=== PATIENT | male | born 1970 | race Caucasian/White ===

== ENCOUNTER 2024-11-17 09:02 | Inpatient (IN) ==
[2024-11-17] MEDS: SODIUM CHLORIDE 0.9% 1,000 ML IV ONE (09:19)
[2024-11-17] MEDS: ONDANSETRON INJ 2 MG/ML 2 ML VIAL IV STA (09:20)
[2024-11-17] MEDS: ACETAMINOPHEN 1,000 MG/100 ML VIAL IV STA (09:20)
[2024-11-17 09:37] LABS: Basophils # (auto) 0.03 K/uL (0.00-0.20); Basophils % (auto) 0.2 %; Eosinophils # (auto) 0.06 K/uL (0.00-0.50); Eosinophils % (auto) 0.4 %; Hematocrit (blood only) 45.9 % (42.0-52.0); Hemoglobin 15.9 g/dl (14.0-18.0); Immature Granulocytes # (auto) 0.08 K/uL (0.01-0.20); Immature Granulocytes % (auto) 0.6 %; Lymphocytes # (auto) 1.55 K/uL (1.20-3.40); Mean Corpuscular Hemoglobin 30.1 pg (25.0-34.0); Mean Corpuscular Hgb Conc 34.6 g/dL (32.0-36.0); Mean Corpuscular Volume 86.9 fL (80.0-100.0); Mean Platelet Volume 9.1 fL (9.4-12.4); Monocytes # (auto) 0.83 K/uL (0.11-0.59); Monocytes % (auto) 5.9 %; Neutrophils # (auto) 11.53 K/uL (1.40-6.50); Neutrophils % (auto) 81.9 %; Platelet Count 294 K/uL (130-400); RDW Coefficient of Variation 13.3 % (11.5-14.5); RDW Standard Deviation 41.7 fL (36.4-46.3); Red Blood Count 5.28 M/uL (4.70-6.10); White Blood Count 14.08 K/ul (4.8-10.8)
--- NOTE | 2024-11-17 09:39 | Emergency Department Note ---
Impression & Plan Acute left flank pain, Calculus of left ureter, Acute UTI (urinary tract infection) ED Provider Note HISTORY OF PRESENT ILLNESS: Patient is a 54-year-old male presenting with left flank pain. Patient reports that his left kidney is "full of stones." He is worried that one of them has moved into his ureter. He states that last night around 1999 he started having pain in his left flank that wraps around to his anterior abdomen and radiated into his left groin. He reports this feels similar to his previous kidney stones. He reports that when he has had kidney stones, he has required surgical intervention. He reports his last urological surgery was about 3 years ago. He reports nausea, vomiting and multiple episodes of diarrhea throughout the night. He reports the pain is a 10 out of 10. He describes it as a burning sensation. He denies any dysuria but does report some hematuria. He denies any fevers. ROS: as above PHYSICAL EXAM: Constitutional: Patient appears in no acute distress. HENT: Head: Normocephalic and atraumatic. Eyes: EOMI, PERRL Mouth/Throat: Mucous membranes moist. Neck: Trachea midline. Neck supple. Cardiovascular: RRR, No murmurs, rubs or gallops. Intact distal pulses. Pulmonary/Chest: No respiratory distress. Breath sounds clear and equal bilaterally. No wheezes or rales. Abdominal: Abdomen soft, no tenderness, rebound or guarding. Back: No midline spinal tenderness, no paraspinal tenderness. Left CVA tenderness Musculoskeletal: No edema, tenderness or deformity noted. Skin: Warm and dry. No rash, erythema, pallor or cyanosis Psychiatric: Appropriate mood and affect for situation. Neurological: Alert and keenly responsive. CN II-XII grossly intact, moving all extremities equally and fully. MDM: - Vitals signs stable - History obtained via patient. History as above. - Chronic conditions affecting care: Nephrolithiasis - Differential diagnoses include, but are not limited to: Ureteral stone; pyelonephritis; UTI; colitis; diverticulitis - Order placed for continuous cardiac monitoring. At this time, monitor showed rate of 80 bpm with normal sinus rhythm, per my interpretation. - External medical records reviewed. - Laboratory workup interpreted by myself showed leukocytosis (WBC 14.08) with neutrophil predominance; stable electrolytes; normal creatinine; normal lipase - CT abdomen/pelvis with IV contrast showed 12 mm calculus at left UPJ causing left hydronephrosis - UA negative for bacteria, but noted to have leukocyte esterase in the urine as it was a number of WBCs. - Patient given 1L NS, 1g IV tylenol and 4 mg IV zofran on arrival. Given 15 mg IV toradol for further pain control - 2g IV rocephin ordered for urine coverage - Discussed case with THEO Gray on for urology at 11:10 AM. She recommended that if urine looks okay, patient could be discharged with outpatient follow-up and good pain control and plan for surgery in the outpatient setting. Did discuss patient's urinalysis when it resulted and she recommended admission to medicine for pain control and she will be down to see the patient. Reports urology plans for a stent placed either later today or tomorrow. - Discussion was had with child support case officer about patient's case and need for admission - Hospitalist consulted for admission - [facility] ASSESSMENT AND PLAN: Diagnosis: Acute left flank pain; left ureteral stone; acute UTI Plan: Admit Past Med/Surg History Problem List (Updated 11/17/24 @ 12:56 by Kelli Dodge MD) Acute UTI (urinary tract infection) (Acute) Calculus of left ureter (Acute) Acute left flank pain (Acute) Social History Smoking Status: Never smoker Preferred Language: Syriac Feels Safe at Home: Yes Allergies Allergies Allergy/AdvReac Type Severity Reaction Status Date / Time No Known Allergies Allergy Unverified 11/17/24 12:54 Home Meds Home Medications Medication Instructions Recorded Confirmed amlodipine 5 mg tablet 5 mg PO DAILY 11/17/24 11/17/24 buspirone 10 mg tablet 20 mg PO HS 11/17/24 11/17/24 duloxetine 30 mg capsule,delayed 30 mg PO HS 11/17/24 11/17/24 release duloxetine 60 mg capsule,delayed 60 mg PO HS 11/17/24 11/17/24 release oxcarbazepine 150 mg tablet 150 mg PO HS 11/17/24 11/17/24 (Trileptal) oxcarbazepine 300 mg tablet 600 mg PO HS 11/17/24 11/17/24 (Trileptal) tramadol 50 mg tablet 100 mg PO DAILY 11/17/24 11/17/24 Results & Data (ED) Vital Signs Vital Signs - 24 hr 11/17/24 09:03 11/17/24 09:04 11/17/24 09:10 Temperature 36.8 C Temperature Source Temporal Artery Scan Pulse Rate 83 Pulse Rate [Apical] 69 Pulse Rate from SpO2 Sensor Respiratory Rate 18 17 Respiratory Effort / Characteristics Non-Labored Spontaneous Respiratory Depth Normal Blood Pressure 114/78 Blood Pressure [Left Radial Artery] 114/75 Blood Pressure Mean 90 Blood Pressure Mean [Left Radial Artery] 88 Pulse Oximetry 99 100 99 Oxygen Delivery Method Room Air Room Air Sepsis Recent Fever Within 48 Hours No Sepsis New/Unexplained Change in Mental Status N/A Sepsis Action Taken by Nursing No Action Required 11/17/24 09:19 11/17/24 09:24 11/17/24 09:30 Temperature Temperature Source Pulse Rate 76 Pulse Rate [Apical] Pulse Rate from SpO2 Sensor 80 Respiratory Rate 22 Respiratory Effort / Characteristics Respiratory Depth Blood Pressure 114/76 115/75 Blood Pressure [Left Radial Artery] Blood Pressure Mean 97 86 Blood Pressure Mean [Left Radial Artery] Pulse Oximetry 91 Oxygen Delivery Method Sepsis Recent Fever Within 48 Hours Sepsis New/Unexplained Change in Mental Status Sepsis Action Taken by Nursing 11/17/24 09:30 11/17/24 09:30 11/17/24 09:30 Temperature Temperature Source Pulse Rate 70 Pulse Rate [Apical] Pulse Rate from SpO2 Sensor 71 Respiratory Rate 29 H Respiratory Effort / Characteristics Respiratory Depth Blood Pressure 115/75 115/75 Blood Pressure [Left Radial Artery] Blood Pressure Mean 86 86 Blood Pressure Mean [Left Radial Artery] Pulse Oximetry 99 Oxygen Delivery Method Sepsis Recent Fever Within 48 Hours Sepsis New/Unexplained Change in Mental Status Sepsis Action Taken by Nursing 11/17/24 09:45 11/17/24 09:51 11/17/24 10:15 Temperature Temperature Source Pulse Rate 64 67 74 Pulse Rate [Apical] Pulse Rate from SpO2 Sensor 66 68 74 Respiratory Rate 28 H 26 H 20 Respiratory Effort / Characteristics Respiratory Depth Blood Pressure Blood Pressure [Left Radial Artery] Blood Pressure Mean Blood Pressure Mean [Left Radial Artery] Pulse Oximetry 100 98 93 Oxygen Delivery Method Sepsis Recent Fever Within 48 Hours Sepsis New/Unexplained Change in Mental Status Sepsis Action Taken by Nursing 11/17/24 10:17 11/17/24 10:51 11/17/24 11:00 Temperature Temperature Source Pulse Rate 75 92 H Pulse Rate [Apical] Pulse Rate from SpO2 Sensor 91 H Respiratory Rate 23 Respiratory Effort / Characteristics Respiratory Depth Blood Pressure 121/77 Blood Pressure [Left Radial Artery] Blood Pressure Mean 85 Blood Pressure Mean [Left Radial Artery] Pulse Oximetry 94 Oxygen Delivery Method Sepsis Recent Fever Within 48 Hours Sepsis New/Unexplained Change in Mental Status Sepsis Action Taken by Nursing 11/17/24 11:03 11/17/24 11:12 11/17/24 11:21 Temperature Temperature Source Pulse Rate 81 81 Pulse Rate [Apical] 88 Pulse Rate from SpO2 Sensor 81 Respiratory Rate 18 19 24 Respiratory Effort / Characteristics Respiratory Depth Blood Pressure Blood Pressure [Left Radial Artery] 121/77 Blood Pressure Mean Blood Pressure Mean [Left Radial Artery] 91 Pulse Oximetry 96 94 Oxygen Delivery Method Sepsis Recent Fever Within 48 Hours Sepsis New/Unexplained Change in Mental Status Sepsis Action Taken by Nursing 11/17/24 11:30 11/17/24 11:30 Temperature Temperature Source Pulse Rate 80 Pulse Rate [Apical] Pulse Rate from SpO2 Sensor 80 Respiratory Rate 20 Respiratory Effort / Characteristics Respiratory Depth Blood Pressure 117/78 Blood Pressure [Left Radial Artery] Blood Pressure Mean 91 Blood Pressure Mean [Left Radial Artery] Pulse Oximetry 94 Oxygen Delivery Method Sepsis Recent Fever Within 48 Hours Sepsis New/Unexplained Change in Mental Status Sepsis Action Taken by Nursing Laboratory Data 11/17/24 09:28 11/17/24 09:28 Lab Results 11/17/24 11/17/24 Range/Units 09:28 11:25 WBC 14.08 H (4.8-10.8) K/ul RBC 5.28 (4.70-6.10) M/uL Hgb 15.9 (14.0-18.0) g/dl Hct 45.9 (42.0-52.0) % MCV 86.9 (80.0-100.0) fL MCH 30.1 (25.0-34.0) pg MCHC 34.6 (32.0-36.0) g/dL RDW Std Deviation 41.7 (36.4-46.3) fL RDW Coeff of Nika 13.3 (11.5-14.5) % Plt Count 294 (130-400) K/uL MPV 9.1 L (9.4-12.4) fL Immature Gran % (Auto) 0.6 % Neut % (Auto) 81.9 % Lymph % (Auto) 11.0 % Spencer % (Auto) 5.9 % Eos % (Auto) 0.4 % Baso % (Auto) 0.2 % Neut # (Auto) 11.53 H (1.40-6.50) K/uL Lymph # (Auto) 1.55 (1.20-3.40) K/uL Spencer # (Auto) 0.83 H (0.11-0.59) K/uL Eos # (Auto) 0.06 (0.00-0.50) K/uL Baso # (Auto) 0.03 (0.00-0.20) K/uL Immature Gran # (Auto) 0.08 (0.01-0.20) K/uL Sodium 138 (136-145) mmol/L Potassium 3.5 (3.5-5.1) mmol/L Chloride 106 (98-107) mmol/L Carbon Dioxide 23 (21-32) mmol/L Anion Gap 9 (3-11) BUN 29 H (6-23) mg/dl Creatinine 1.22 (0.6-1.4) mg/dl Est Cr Clr Drug Dosing Not Reportable eGFR 71.33 BUN/Creatinine Ratio 23.8 H (10-20) Glucose 100 H (70-99(Fasting)) mg/dl Calcium 9.1 (8.6-10.3) mg/dl Total Bilirubin 1.1 H (0.2-1.0) mg/dl AST 24 (13-39) U/L ALT 22 (7-52) U/L Alkaline Phosphatase 106 H (34-104) U/L Total Protein 7.7 (6.0-8.3) gm/dl Albumin 4.5 (3.4-5.0) gm/dl Globulin 3.2 (2.5-4.0) gm/dl Albumin/Globulin Ratio 1.4 (0.9-2) Lipase 15 (11-82) U/L Urine Color Yellow Urine Appearance Clear (Clear) Urine pH 5.5 (4.5-7.5) Ur Specific [place] > 1.045 H (1.000-1.030) Urine Protein 1+ H (Negative) Urine Glucose (UA) Negative (Negative) Urine Ketones Trace H (Negative) Urine Blood 2+ H (Negative) Urine Nitrite Negative (Negative) Urine Bilirubin Negative (Negative) Urine Urobilinogen Negative (Negative) Ur Leukocyte Esterase 2+ H (Negative) Urine WBC (Auto) >50 H (0-5) /hpf Urine RBC (Auto) 11-20 H (0-2) /hpf U Hyaline Cast (Auto) 0-2 (0-2) /lpf U Epithel Cells (Auto) 0-2 (0-2) /hpf Urine Bacteria (Auto) None Seen (None Seen) Administered Medications Discontinued Medications Sodium Chloride (Nss) 1,000 mls @ 999 mls/hr IV .Q1H1M ONE Stop: 11/17/24 10:10 Last Infusion: 11/17/24 10:29 Dose: Infused Documented By: Admin: 11/17/24 09:19 Dose: 999 mls/hr Documented By: YANNA Acetaminophen (Ofirmev) 1,000 mg in 100 mls @ 400 mls/hr IV NOW STA Stop: 11/17/24 09:24 Last Infusion: 11/17/24 09:57 Dose: Infused Documented By: Admin: 11/17/24 09:20 Dose: 400 mls/hr Documented By: YANNA Ceftriaxone Sodium (Rocephin) 2,000 mg in 50 mls @ 100 mls/hr IV NOW STA Stop: 11/17/24 12:28 Last Admin: 11/17/24 12:39 Dose: 100 mls/hr Documented By: YANNA Ioversol (Optiray 320 100ml) 92 ml IV ONCE ONE Stop: 11/17/24 10:46 Last Admin: 11/17/24 10:45 Dose: 92 ml Documented By: TRAVIS Ketorolac Tromethamine (Ketorolac Tromethamine 15 Mg/Ml Vial) 15 mg IV NOW STA Stop: 11/17/24 10:55 Last Admin: 11/17/24 11:18 Dose: 15 mg Documented By: YANNA Ondansetron HCl (Ondansetron Inj 2 Mg/Ml 2 Ml Vial) 4 mg IV NOW STA Stop: 11/17/24 09:11 Last Admin: 11/17/24 09:20 Dose: 4 mg Documented By: YANNA Imaging Data Radiologist's Impression: Abdomen/Pelvis CT 11/17/24 09:[address] WITH IV CONTRAST CT DOSE: 1082.37 mGy.cm HISTORY: left flank pain TECHNIQUE: Multiaxial CT images of the abdomen and pelvis were performed following the IV administration of 90 cc of Optiray, A dose lowering technique was utilized adhering to the principles of ALARA. COMPARISON STUDY: None FINDINGS: ABDOMEN: Gallbladder is surgically absent. Liver, spleen, pancreas, and adrenal glands are unremarkable. There are a few small cysts in both kidneys. There is no hydronephrosis or renal calculi on the right. There is mild hydronephrosis of the left kidney. There is a 1.2 cm calculus at the left UPJ. No other renal or ureteral calculi seen. No abdominal aortic aneurysm. There are mild atherosclerotic calcifications. Pelvis: Prostate is enlarged. Urinary bladder is mildly distended. There is mild sigmoid diverticulosis. No acute diverticulitis. Normal appendix. No bowel inflammation or obstruction. No free fluid, free air, or abscess. No enlarged adenopathy. Osseous structures: There is mild lumbar degenerative disc disease. There is an area of lucency with peripheral sclerosis superior aspect of the right femoral head consistent with AVN. IMPRESSION: 1. 12 mm calculus at the left UPJ causes mild left hydronephrosis. 2. Otherwise as described. ACT 112: Negative or not required by law. The above report was generated using voice recognition software. It may contain grammatical, syntax or spelling errors. Electronically signed by: Edgardo Morris M.D. 11/17/2024 11:00 AM Discharge Plan Visit Data Chief Complaint: Kidney Stone Stated Complaint: KIDNEY STONES ED Provider: Kelli Dodge Discharge Problem: Acute left flank pain, Calculus of left ureter, Acute UTI (urinary tract infection) Forms Stand Alone Forms: [facility] [employer] Prescriptions Prescriptions: No Action oxcarbazepine [Trileptal] 150 mg Tablet 150 mg PO HS Rx Instructions: Take w/ 600mg to equal 750mg oxcarbazepine [Trileptal] 300 mg Tablet 600 mg PO HS Rx Instructions: Take w/ 1500mg to equal 750mg amlodipine 5 mg Tablet 5 mg PO DAILY tramadol 50 mg Tablet 100 mg PO DAILY buspirone 10 mg Tablet 20 mg PO HS duloxetine 30 mg Capsule,Delayed Release(Dr/Ec) 30 mg PO HS Rx Instructions: Take w/ 60mg to equal 90 mg duloxetine 60 mg Capsule,Delayed Release(Dr/Ec) 60 mg PO HS Rx Instructions: Take w/ 30mg to equal 90 mg Referrals Referrals: Luigi STEIN [Primary Care Provider] -
[2024-11-17 10:21] LABS: Glucose 100 mg/dl (70-99(Fasting))
[2024-11-17 10:22] LABS: Alanine Aminotransferase 22 U/L (7-52); Albumin Globulin Ratio 1.4 (0.9-2); Albumin Level 4.5 gm/dl (3.4-5.0); Alkaline Phosphatase 106 U/L (34-104); Anion Gap 9 (3-11); Aspartate Aminotransferase 24 U/L (13-39); BUN Creatinine Ratio 23.8 (10-20); Bilirubin,Total 1.1 mg/dl (0.2-1.0); Blood Urea Nitrogen 29 mg/dl (6-23); Calcium 9.1 mg/dl (8.6-10.3); Carbon Dioxide 23 mmol/L (21-32); Chloride 106 mmol/L (98-107); Globulin 3.2 gm/dl (2.5-4.0); Lipase 15 U/L (11-82); Potassium 3.5 mmol/L (3.5-5.1); Sodium 138 mmol/L (136-145); Total Protein 7.7 gm/dl (6.0-8.3)
[2024-11-17] MEDS: OPTIRAY 320 100ml IV ONE (10:45)
--- NOTE | 2024-11-17 11:01 | CT Scan Report ---
ABDOMEN AND PELVIS CT WITH IV CONTRAST CT DOSE: 1082.37 mGy.cm HISTORY: left flank pain TECHNIQUE: Multiaxial CT images of the abdomen and pelvis were performed following the IV administrat ion of 90 cc of Optiray, A dose lowering technique was utilized adhering to the principles of ALARA. COMPARISON STUDY: None FINDINGS: ABDOMEN: Gallbladder is surgically absent. Liver, spleen, pancreas, and adrenal glands are unremarkab le. There are a few small cysts in both kidneys. There is no hydronephrosis or renal calculi on the r ight. There is mild hydronephrosis of the left kidney. There is a 1.2 cm calculus at the left UPJ. No other renal or ureteral calculi seen. No abdominal aortic aneurysm. There are mild atherosclerotic c alcifications. Pelvis: Prostate is enlarged. Urinary bladder is mildly distended. There is mild sigmoid diverticulos is. No acute diverticulitis. Normal appendix. No bowel inflammation or obstruction. No free fluid, fr ee air, or abscess. No enlarged adenopathy. Osseous structures: There is mild lumbar degenerative disc disease. There is an area of lucency with peripheral sclerosis superior aspect of the right femoral head consistent with AVN. IMPRESSION: 1. 12 mm calculus at the left UPJ causes mild left hydronephrosis. 2. Otherwise as described. ACT 112: Negative or not required by law. The above report was generated using voice recognition software. It may contain grammatical, syntax o r spelling errors. Electronically signed by: Edgardo Morris M.D. 11/17/2024 11:00 AM
[2024-11-17] MEDS: KETOROLAC TROMETHAMINE 15 MG/ML VIAL IV STA (11:18)
[2024-11-17 11:40] LABS: Appearance Urine Clear (Clear); Bacteria Urine Automated None Seen (None Seen); Bilirubin Urine Negative (Negative); Blood Urine 2+ (Negative); Cast Urine Automated 0-2 /lpf (0-2); Color Urine Yellow; Epithelial Cell Urine Auto 0-2 /hpf (0-2); Glucose Urine UA Negative (Negative); Ketones Urine Trace (Negative); Leukocyte Esterase Urine 2+ (Negative); Nitrite Urine Negative (Negative); Protein Urine 1+ (Negative); Specific Gravity Urine > 1.045 (1.000-1.030); Urobilinogen Urine Negative (Negative); WBC Urine Automated >50 /hpf (0-5); pH Urine 5.5 (4.5-7.5)
[2024-11-17] MEDS: cefTRIAXone SODIUM 2,000 MG/50 ML BAG IV STA (12:39)
--- NOTE | 2024-11-17 12:51 | History & Physical Report ---
Date of Service November 17, 2024 Assessment & Plan (1) Acute left flank pain: (2) Calculus of left ureter: (3) Acute UTI (urinary tract infection): (4) Renal insufficiency: (5) Leukocytosis: (6) Diarrhea: (7) Abdominal pain: (8) Depression: (9) Mood disorder: Plan #Acute L flank pain - in patient w/ history of kidney stones and last intervention ~3 yrs ago and obstructing stone at L UPJ w/ mild Cr elevation (unknown baseline) and leukocytosis w/ n/v/d but no fevers reported. #Hematuria, Obstructing Kidney Stone CTAP on admission w/ 12 mm calculus at the left UPJ causes mild left hydronephrosis. WBC 14k, BUN/Cr 29/1.22, TB 1.1, ALP 106 on admission w/ normal lipase (absent GB), w/ UA concerning for possible infection but no bacteria Urology consulted NPO for OR this afternoon/evening IVF w/ NS + 20meq Kcl @ 100cc/hr x 2 L ordered Ceftriaxone IV F/u urine cx Toradol, Tylenol IV as needed for pain. Morphine 1mg for breakthrough if needed (tramadol 50mg x 2 tablets at baseline, will make 50mg BID prn tomorrow but can resume home dose if stable s/p OR and cysto) Zofran IV for antiemetics Will check Vit D w/ repeat stones but no hypercalcemia on labs Consider adding flomax post-op. Monitor labs/exam on repeat #nausea/vomiting/diarrhea reported, likely from obstructing kidney stone but also reports possible diarrhea/spread at the shelter, ?norovirus outbreak --> will check stool studies but given reports will empirically place on isolation precautions in the meantime IVF and antiemetics available as above Monitor for escalation/further eval #HTN - on amlodipine 5mg daily but did not take this morning but BPs stable in setting of pain and w/ diarrhea losses/dehydration will resume for AM 11/18 #Mental health - stable at present and will continue home trileptal 750mg HS, buspar 20mg HS, cymbalta 90mg HS per intake forms/confirmed dosing w/ patient in room DVT proph: chemo proph deferred on admission as for OR and w/ slight hematuria/slight bump in Cr. SCDs ordered in meantime but can consider adding chemoproph pending inpatient course Dispo: admit to medical, NPO for OR this evening with urology. Possible dc next 24-48 hrs pending response to intervention/cx History of Present Illness Chief Complaint: kidney stone, flank pain Primary Care Provider: [facility] 54yo male presents for LEFT flank pain with radiation to anterior abdomen with history of kidney stones (last urological procedure ~ 3 years a go at [facility]). Reports pain 10/10 with some hematuria reported along with nausea/vomiting and diarrhea. Patient evaluated in B11B, 2 guards at bedside. Mild distress and to get medication for pain. Reports needing urological procedure in past for stone treatment and discussed plan for OR this evening with urology as well as abx for possible UTI. Notable did have diarrhea as well, no RUQ pain but discussed w/ guards if anyone else sick and does have reports possible norovirus. Will send for testing, IVF hydration ordered and will place empiric isolation precatuions. Reviewed home meds: cymbalta 90mg HS, trileptal 750mg HS buspar 20mg HS, amlodipine 5mg daily (did not take today). Tramadol 50mg - 2 tablets once daily. No CP/SOB reported. Questions/concerns addressed at this time. Allergies Allergy/AdvReac Type Severity Reaction Status Date / Time wool Allergy Unknown Unknown - Unverified 11/17/24 12:57 On med list from [facility] Home Medications Medication Instructions Recorded Confirmed Type amlodipine 5 mg tablet 5 mg PO DAILY 11/17/24 11/17/24 History buspirone 10 mg tablet 20 mg PO HS 11/17/24 11/17/24 History duloxetine 30 mg capsule,delayed 30 mg PO HS 11/17/24 11/17/24 History release duloxetine 60 mg capsule,delayed 60 mg PO HS 11/17/24 11/17/24 History release oxcarbazepine 150 mg tablet 150 mg PO HS 11/17/24 11/17/24 History (Trileptal) oxcarbazepine 300 mg tablet 600 mg PO HS 11/17/24 11/17/24 History (Trileptal) tramadol 50 mg tablet 100 mg PO DAILY 11/17/24 11/17/24 History ciprofloxacin HCl 500 mg tablet 500 mg PO BID #14 tabs 11/19/24 Rx (Cipro) Past Med/Surg History Problem List (Updated 11/19/24 @ 09:09 by Salty Arrieta MD) Encounter for pre-operative examination Depression Abdominal pain Diarrhea Leukocytosis Acute UTI (urinary tract infection) (Acute) Calculus of left ureter (Acute) Acute left flank pain (Acute) Medical History (Updated 11/19/24 @ 09:09 by Salty Arrieta MD) Hypertension Mood disorder Renal insufficiency Surgical History (Updated 11/17/24 @ 13:58 by Caden Martinez MD) History of hydrocelectomy Hx laparoscopic cholecystectomy Hx of cystoscopy Social History Smoking Status: Never smoker Hx Alcohol Use: No Hx Substance Use: No Preferred Language: Tuvaluan Communication Ability: Effective Radio Performer Required: No Beliefs That Will Affect Care: None Current Living Situation: Personal Care Facility Feels Safe at Home: Yes Assistive Devices: None Review of Systems 2 Review of Systems: All systems reviewed & are unremarkable except as noted in HPI & below Physical Exam 2 Physical Exam: General 54yo male sitting in bed, guards at bedside, mildly uncomfortable appearing, L flank/CVA tenderness w/ radiation to groin but also with lower abd cramping reported HEENT: head atraumatic, normocephalic, mm dry, trachea midline Resp; even/unlabored, on room air CV: RRR, no significant m/r/g GI: +BS, +distension, + L flank/CVA tenderness, no rigidity/guarding : no severino, +CVA tenderness on L, voiding in urinal MSK/Neuro/Psych: not confused, nonfocal , answering questions appropriately, moves all extremities (as allowed w/ handcuffs in bed) Results & Data Results & Data Vital Signs (Past 12 Hours) Vital Signs Temp Pulse Pulse Resp BP BP Pulse Ox 11/17/24 11:30 80 20 94 11/17/24 11:30 117/78 11/17/24 11:21 81 24 11/17/24 11:12 81 19 94 11/17/24 11:03 88 18 121/77 96 11/17/24 11:00 121/77 11/17/24 10:51 92 H 23 94 11/17/24 10:17 75 11/17/24 10:15 74 20 93 11/17/24 09:51 67 26 H 98 11/17/24 09:45 64 28 H 100 11/17/24 09:30 70 29 H 99 11/17/24 09:30 115/75 11/17/24 09:30 115/75 11/17/24 09:30 115/75 11/17/24 09:24 76 22 91 11/17/24 09:19 114/76 11/17/24 09:10 99 11/17/24 09:04 36.8 C 83 17 114/78 100 11/17/24 09:03 69 18 114/75 99 O2 Del Method 11/17/24 11:30 11/17/24 11:30 11/17/24 11:21 11/17/24 11:12 11/17/24 11:03 11/17/24 11:00 11/17/24 10:51 11/17/24 10:17 11/17/24 10:15 11/17/24 09:51 11/17/24 09:45 11/17/24 09:30 11/17/24 09:30 11/17/24 09:30 11/17/24 09:30 11/17/24 09:24 11/17/24 09:19 11/17/24 09:10 11/17/24 09:04 Room Air 11/17/24 09:03 Room Air Laboratory Results 11/17/24 09:28 11/17/24 09:28 UA 1+ protein, trace ketones, 2+ blood, 2+ leuk esterase, >50 WBC, 11-20 RBC, no bacteria. Urine cx pending TB 1.1, AST/ALT wnl, ALP 106 Flu/RSV/COVID pending Diagnostic Findings Abdomen/Pelvis CT 11/17/24 09:[address] WITH IV CONTRAST CT DOSE: 1082.37 mGy.cm HISTORY: left flank pain TECHNIQUE: Multiaxial CT images of the abdomen and pelvis were performed following the IV administration of 90 cc of Optiray, A dose lowering technique was utilized adhering to the principles of ALARA. COMPARISON STUDY: None FINDINGS: ABDOMEN: Gallbladder is surgically absent. Liver, spleen, pancreas, and adrenal glands are unremarkable. There are a few small cysts in both kidneys. There is no hydronephrosis or renal calculi on the right. There is mild hydronephrosis of the left kidney. There is a 1.2 cm calculus at the left UPJ. No other renal or ureteral calculi seen. No abdominal aortic aneurysm. There are mild atherosclerotic calcifications. Pelvis: Prostate is enlarged. Urinary bladder is mildly distended. There is mild sigmoid diverticulosis. No acute diverticulitis. Normal appendix. No bowel inflammation or obstruction. No free fluid, free air, or abscess. No enlarged adenopathy. Osseous structures: There is mild lumbar degenerative disc disease. There is an area of lucency with peripheral sclerosis superior aspect of the right femoral head consistent with AVN. IMPRESSION: 1. 12 mm calculus at the left UPJ causes mild left hydronephrosis. 2. Otherwise as described. ACT 112: Negative or not required by law. The above report was generated using voice recognition software. It may contain grammatical, syntax or spelling errors. Electronically signed by: Edgardo Morris M.D. 11/17/2024 11:00 AM Supervising Physician Co-Signing Physician Notes During face to face encounter, I obtained a history and physical examination, discussed plan of care with patient and answered any questions. I discussed plan of care with ODALIS Castro. I reviewed above note and agree with it except for the following: Patient will be admitted for hematuria and kidney stone will consult urology. will likely need stent placement NPO for procedure PG Care Time/CCT Total # of Minutes Spent Total Time Spent with Patient: Total time spent is greater than 50% in coordination of care (as documented) at patient's floor/unit and/or counseling patient: Coding Level of Care Code 01937 INT INP/OBS CARE 3/75MIN Diagnoses Acute left flank pain R10.9 Calculus of left ureter N20.1 Acute UTI (urinary tract infection) N39.0 Renal insufficiency N28.9 Leukocytosis D72.829 Diarrhea R19.7 Abdominal pain R10.9 Depression F32.A Mood disorder F39
--- NOTE | 2024-11-17 12:58 | Urology Consultation ---
Date of Consultation November 17, 2024 Assessment & Plan (1) Calculus of left ureter: (2) Acute left flank pain: (3) Acute UTI (urinary tract infection): 54-year-old male from [facility] with history of kidney stones who presented to the emergency department today for evaluation of left flank pain and v omiting. CT abd pelvis notable for an obstructing left proximal ureteral stone measuring 12 mm with mild left hydronephrosis. Patient afebrile and hemodynamically stable Labs reviewedcreatinine 1.22, WBC 14.08, hemoglobin 15.9 Urinalysis showed 2+ LE, >50 WBC, 11-20 RBC, negative for bacteria Urine culture pendingfollow urine culture He was started on broad-spectrum antibiotics in ED CTAP notable for an obstructing left proximal ureteral stone measuring 12 mm with mild hydronephrosis, no additional renal or ureteral calculi; bilateral small renal cysts He is being admitted to medicine service due to intractable pain We discussed that his stone is unlikely to pass spontaneously given size Discussed options for stone management including left ureteral stent placement acutely vs outpatient management if pain is controlled He continues to have pain and elects ureteral stent placement He understands that stone treatment will take place at a later date Ureteral stents discussed in detail Proceed to OR for cystoscopy and left ureteral stent placement Risk benefits of procedure to be reviewed with patient by Dr. Farah Continue supportive care and medical management per hospital medicine service will follow Attending note: Patient independently assessed, examined, interviewed, and evaluated. Agree with note as above. Patient's vitals and labs were all reviewed. Pertinent values in the HPI and plan section. Creatinine 1.22, white count 14.08, hemoglobin 15.9. Imaging was reviewed interpreted by myself. Large obstructing stone in the UPJ region on the left. Agree with read. Vitals were reviewed. Discussed findings extensively with patient and family. Reviewed with nurse practitioner as well as consulting physicians/team. Patient has previously had stones had to undergo intervention on stones twice before. Is unsure what type of stones he is had. Patient is having increasing pain and discomfort. Concerned due to large size for development of significant obstruction and possible GUIDO infection or other major event. Patient's complicated medical and surgical history was reviewed and summarized above. Patient's surgical, medical, social, and family history were all reviewed with pertinent values as above. Discussed patient's current diagnosis as well as concerns and issues. Reviewed different options moving forward. Discussed potential risks and benefits as well as possible options and concerns. Reviewed potential surgical options and interventions. Discussed potential issues and concerns related to intervention. Risk and benefits were discussed extensively with patient and any available family. Discussed potential risks related to anesthesia. Discussed risks of bleeding infection and injury. Discussed options for conservative measure and maximum expulsion medical therapy and symptom controlled. Discussed ESWL. Discussed Ureteroscopy with extraction and/or laser lithotripsy. Risks and benefits were discussed. Stone free rates were also discussed as well as possibility of multiple procedures. Ureteral stents were discussed as well as post-operative issues and pain management. All questions were answered. Risks and benefits discussed at length for procedure. These include bleeding, infection, injury to surrounding tissues or organs, and risks associated with anesthesia. Patient states understanding and agrees to proceed. Will sign consent and schedule. Plan for cystoscopy with possible left ureteroscopy and stone treatment/stent placement History of Present Illness History of Present Illness This is a 54-year-old male from [facility] with history of kidney stones who presented to the emergency department today for evaluation of left flank pain and vomiting. On arrival to ED, he was afebrile and hemodynamically stable. Lab work showed creatinine 1.22, WBC 14.08, hemoglobin 15.9. Urinalysis showed 2+ blood, 2+ LE, >50 WBC, 11-20 RBC and negative for bacteria. Urine culture collected and pending. Workup included CT abdomen pelvis. CT shows a 12 mm calculus at the left UPJ resulting in mild left hydronephrosis. No additional renal or ureteral calculi identified. Small renal cysts in both kidneys. ED course: IV fluids, ondansetron, ketorolac, IV Tylenol and Rocephin. Urology consulted for left ureteral stone, renal colic. Patient seen and examined in the emergency department with 2 guards present. He is awake and resting in litter, no apparent distress. He reports left-sided pain, currently 6 out of 10. He reports nausea and vomiting prior to arrival, but currently resolved. No fever or chills. He is voiding spontaneously. No dysuria or gross hematuria. History of kidney stones. History of URS-LL, stent in the past, last time ~2021 in [place]. Allergies Allergy/AdvReac Type Severity Reaction Status Date / Time wool Allergy Unknown Unknown - Unverified 11/17/24 12:57 On med list from [facility] Medications Medication Instructions Recorded Confirmed Type amlodipine 5 mg tablet 5 mg PO DAILY 11/17/24 11/17/24 History buspirone 10 mg tablet 20 mg PO HS 11/17/24 11/17/24 History duloxetine 30 mg capsule,delayed 30 mg PO HS 11/17/24 11/17/24 History release duloxetine 60 mg capsule,delayed 60 mg PO HS 11/17/24 11/17/24 History release oxcarbazepine 150 mg tablet 150 mg PO HS 11/17/24 11/17/24 History (Trileptal) oxcarbazepine 300 mg tablet 600 mg PO HS 11/17/24 11/17/24 History (Trileptal) tramadol 50 mg tablet 100 mg PO DAILY 11/17/24 11/17/24 History Patient History Medical History (Updated 11/17/24 @ 13:58 by Caden Martinez MD) Hypertension Mood disorder Renal insufficiency Surgical History (Updated 11/17/24 @ 13:58 by Caden Martinez MD) History of hydrocelectomy Hx laparoscopic cholecystectomy Hx of cystoscopy Social History Smoking Status: Never smoker Preferred Language: Nepali Feels Safe at Home: Yes Review of Systems Review of Systems: All systems reviewed & are unremarkable except as noted in HPI & below Physical Exam Constitutional: no acute distress and not ill appearing Respiratory: normal respiratory effort; no respiratory distress and no labored breathing Gastrointestinal (Abdomen): Inspection/Auscultation: abdomen normal to inspection Musculoskeletal: Head/Neck/Chest: normocephalic Neurologic: moves all extremities and awake Psychiatric: Orientation: alert and oriented x 3 Results & Data Vital Signs (Past 12 Hours) Vital Signs Temp Pulse Pulse Resp BP BP Pulse Ox 11/17/24 11:30 80 20 94 11/17/24 11:30 117/78 11/17/24 11:21 81 24 11/17/24 11:12 81 19 94 11/17/24 11:03 88 18 121/77 96 11/17/24 11:00 121/77 11/17/24 10:51 92 H 23 94 11/17/24 10:17 75 11/17/24 10:15 74 20 93 11/17/24 09:51 67 26 H 98 11/17/24 09:45 64 28 H 100 11/17/24 09:30 70 29 H 99 11/17/24 09:30 115/75 11/17/24 09:30 115/75 11/17/24 09:30 115/75 11/17/24 09:24 76 22 91 11/17/24 09:19 114/76 11/17/24 09:10 99 11/17/24 09:04 36.8 C 83 17 114/78 100 11/17/24 09:03 69 18 114/75 99 O2 Del Method 11/17/24 11:30 11/17/24 11:30 11/17/24 11:21 11/17/24 11:12 11/17/24 11:03 11/17/24 11:00 11/17/24 10:51 11/17/24 10:17 11/17/24 10:15 11/17/24 09:51 11/17/24 09:45 11/17/24 09:30 11/17/24 09:30 11/17/24 09:30 11/17/24 09:30 11/17/24 09:24 11/17/24 09:19 11/17/24 09:10 11/17/24 09:04 Room Air 11/17/24 09:03 Room Air PG Care Time/CCT Total # of Minutes Spent Total Time Spent with Patient: Total time spent is greater than 50% in coordination of care (as documented) at patient's floor/unit and/or counseling patient: Coding Level of Care Code 05288 IN/OBS CONSULT LVL 4,60M Diagnoses Calculus of left ureter N20.1 Acute left flank pain R10.9 Acute UTI (urinary tract infection) N39.0
[2024-11-17] MEDS ORDERED: PROPOFOL IV EMULSION 10 MG/ML 20 ML VIAL IV ONE (13:27)
[2024-11-17] MEDS ORDERED: LIDOCAINE 2% 2 ML VIAL/AMP(20MG/ML) INFIL ONE (13:29)
[2024-11-17] MEDS ORDERED: MIDAZOLAM HCL 1 MG/ML 2ML VIAL ONE (13:34)
[2024-11-17] MEDS ORDERED: fentaNYL citrate PF 100 MCG/2 ML VIAL ONE (13:34)
--- NOTE | 2024-11-17 13:57 | Anesthesiology Consultation ---
Date of Service November 17, 2024 Assessment & Plan (1) Encounter for pre-operative examination: Chart Review Chart Review: Acceptable Risk for Surgery History Surgery Operation Date: 11/17/24 10:30 Proposed Procedures p Cystoscopy, Left Ureteral Stent Placement - Jamal Farah DO Height/Weight Height: 6 ft Weight: 80.9 kg Allergies Allergy/AdvReac Type Severity Reaction Status Date / Time wool Allergy Unknown Unknown - Unverified 11/17/24 12:57 On med list from [facility] Medications [place] Medications Medication Instructions Recorded Confirmed Last Taken amlodipine 5 mg tablet 5 mg PO DAILY 11/17/24 11/17/24 Unknown buspirone 10 mg tablet 20 mg PO HS 11/17/24 11/17/24 Unknown duloxetine 30 mg capsule,delayed 30 mg PO HS 11/17/24 11/17/24 Unknown release duloxetine 60 mg capsule,delayed 60 mg PO HS 11/17/24 11/17/24 Unknown release oxcarbazepine 150 mg tablet 150 mg PO HS 11/17/24 11/17/24 Unknown (Trileptal) oxcarbazepine 300 mg tablet 600 mg PO HS 11/17/24 11/17/24 Unknown (Trileptal) tramadol 50 mg tablet 100 mg PO DAILY 11/17/24 11/17/24 Unknown Past Medical History Medical History (Updated 11/17/24 @ 13:58 by Caden Martinez MD) Hypertension Mood disorder Renal insufficiency Past Surgical History Surgical History (Updated 11/17/24 @ 13:58 by Caden Martinez MD) History of hydrocelectomy Hx laparoscopic cholecystectomy Hx of cystoscopy Social History Smoking Status: Never smoker Physical Exam Vital Signs Last Vital Signs Temp 36.8 C 11/17/24 09:04 Pulse 70 11/17/24 13:30 Resp 20 11/17/24 13:30 BP 114/77 11/17/24 13:30 Pulse Ox 95 11/17/24 13:30 O2 Del Method Room Air 11/17/24 09:04 Testing Laboratory Results 11/17/24 09:28 11/17/24 09:28 Urine Color Yellow 11/17/24 11:25 Urine Appearance Clear (Clear) 11/17/24 11:25 Urine pH 5.5 (4.5-7.5) 11/17/24 11:25 Ur Specific [place] > 1.045 (1.000-1.030) H 11/17/24 11:25 Urine Protein 1+ (Negative) H 11/17/24 11:25 Urine Glucose (UA) Negative (Negative) 11/17/24 11:25 Urine Ketones Trace (Negative) H 11/17/24 11:25 Urine Nitrite Negative (Negative) 11/17/24 11:25 Ur Leukocyte Esterase 2+ (Negative) H 11/17/24 11:25 Urine WBC (Auto) >50 /hpf (0-5) H 11/17/24 11:25 Urine RBC (Auto) 11-20 /hpf (0-2) H 11/17/24 11:25 U Hyaline Cast (Auto) 0-2 /lpf (0-2) 11/17/24 11:25 U Epithel Cells (Auto) 0-2 /hpf (0-2) 11/17/24 11:25 Urine Bacteria (Auto) None Seen (None Seen) 11/17/24 11:25
[2024-11-17] MEDS ORDERED: PROMETHAZINE HCL 6.25 MG in SODIUM CHLORIDE 0.9% 50 ML IV PRN (14:00)
[2024-11-17] MEDS ORDERED: ONDANSETRON INJ 2 MG/ML 2 ML VIAL IV PRN ×2 (14:00→16:11)
[2024-11-17] MEDS ORDERED: fentaNYL citrate PF 100 MCG/2 ML VIAL IV PRN (14:00)
[2024-11-17] MEDS ORDERED: ATROPINE SULFATE 0.1 MG/ML 10ML SYR IV PRN (14:00)
[2024-11-17 14:05] LABS: Influenza A virus by PCR Negative (Neg); Influenza B virus by PCR Negative (Neg); RSV by PCR Negative (Neg); SARS CoV2 RNA(COVID-19) Ceph NEGATIVE (Negative)
[2024-11-17] MEDS ORDERED: ONDANSETRON INJ 2 MG/ML 2 ML VIAL ONE (14:19)
--- NOTE | 2024-11-17 14:33 | XRay Report ---
XR chest 1V portable CLINICAL HISTORY: pre-op COMPARISON STUDY: None FINDINGS: Heart size and pulmonary vasculature are normal. No effusion or consolidation. IMPRESSION: No acute findings. ACT 112: Negative or not required by law. Electronically signed by: Edgardo Morris M.D. 11/17/2024 2:32 PM
[2024-11-17] MEDS: DIATRIZOATE MEGLUMINE 30% 100ML VIAL INSTIL ONE (14:41)
--- NOTE | 2024-11-17 14:48 | Operative Report ---
PG Post Operative Report Pre & Post Diagnosis Operation Date: 11/17/24 10:30 Pre-Op Diagnosis: Left Kidney Stone Post-Op Diagnosis: Left Kidney Stone I identified the patient and participated in the time-out.: Yes Procedure Operation Date: 11/17/24 10:30 Actual Procedures p Cystoscopy with Left Ureteroscopy, Left Retrograde Pyelogram, Laser Destruction of Stone, Basket Stone Extraction, and Left Ureteral Stent Placement(Left) - Jamal Farah, Surgeon Jamal Farah, II, DO Therapeutic Recreation Specialist None Estimated Blood Loss 1 Findings Consistent with Post-Op Diagnosis Stone obstructing Left UPJ, unable to advance wire. Contrast pooling within kidney from CT earlier in day. Stone destroyed to dust and small fragments and larger fragments removed. Specimens Stone Fragments Drains 6 Fr Multilength Anesthesia Type General Complications none Disposition Disposition: Recovery Room Indications Patient with bothersome stones and significant obstruction. Risks and benefits discussed at length. Description of Procedure Patient was consented and brought back to the operating room. Patient was placed under anesthesia in the supine position and moved to the dorsal lithotomy position. Patient was prepped and draped in the regular sterile fashion. A time out was completed identifying the correct patient and procedure. A 30degree Cystoscope was placed into the bladder and the entire bladder was examined. The UO's were identified. The UO was cannulized with a catheter and a retrograde pyelogram was completed. Contrast appeared to be within the renal pelvis from the CT earlier in the day. Contrast along the ureter did not appear to go past the likely side of the stone. A wire was then placed. The wire however would not pass the likely obstruction at the UPJ and did not appear to be going within the renal pelvis that was still filled with contrast. A ureteral access sheath and second safety wire was placed. The flexible ureteroscope was taken into the ureter. The stone was found to be impacted in the UPJ region. With some manipulation a wire was able to be passed past the significant obstructive stone under direct visualization. Did not appear that a stent would be able to bypassed the area however. At this point it was decided to destroy the stone to allow access into the renal pelvis. A laser fiber was selected and the stones were pulverized to dust and small fragments. Larger fragments were grasped and removed and sent for analysis. The entire area was once again examined. There was a small amount of debris within the renal pelvis. Significant stone dust and debris was created from the fragmentation and destruction of the stone. The entire renal pelvis was assessed. No additional stones or other areas of concern were discovered. The scope was slowly removed with the wire left in place. Contrast was placed through the scope for a pyelogram to assist in stent placement. The entire ureter was examined as the scope was slowly removed. No obstructions or other areas of concern were noted. With the wire in place, a 6 Fr Double J stent was placed. It was confirmed with fluoroscopy. With the stent in place, the bladder was emptied. The scope was removed. The patient was cleaned, aroused from anesthesia, and transferred to the pacu in stable condition having tolerated the procedure well with no complications. I was present and participated in all aspects of the procedure. The patient will be monitored in the PACU until transferred. Will plan to monitor overnight. Patient is admitted to the hospitalist team. Will work on pain control and monitoring for infection or other issues after stone treatment. Can likely be discharged possibly tomorrow with plans for stent removal in 2 to 3 weeks. I attest to the content of the Intraoperative Record and any orders documented therein. Any exceptions are noted below.
--- NOTE | 2024-11-17 14:53 | Fluoroscopy Report ---
FL retrograde includes kub CLINICAL HISTORY: LT CYSTO COMPARISON STUDY: None FLUOROSCOPY TIME: 34 seconds FLUOROSCOPY IMAGES: 4 EXPOSURE DOSE: 8 mGy FINDINGS: Fluoroscopy was provided for urologic procedure. IMPRESSION: Intraoperative fluoroscopy. ACT 112: Negative or not required by law. Electronically signed by: Edgardo Morris M.D. 11/17/2024 2:51 PM
--- NOTE | 2024-11-17 15:19 | Anesthesiology Progress Note ---
Date of Service November 17, 2024 Anesthesia Post Procedure Vital Signs Vital Signs: Temp Pulse Pulse Resp BP BP BP 11/17/24 15:10 85 16 121/78 11/17/24 15:00 82 16 118/78 11/17/24 14:54 36.0 C L 90 18 135/89 11/17/24 13:30 70 20 11/17/24 13:30 114/77 11/17/24 13:30 114/77 11/17/24 13:18 73 23 11/17/24 13:06 71 21 11/17/24 13:00 72 16 135/81 11/17/24 12:36 73 17 11/17/24 12:30 124/87 11/17/24 12:18 62 21 11/17/24 12:12 60 18 11/17/24 12:03 76 23 11/17/24 12:00 117/77 11/17/24 12:00 117/77 11/17/24 11:30 80 20 11/17/24 11:30 117/78 11/17/24 11:21 81 24 11/17/24 11:12 81 19 11/17/24 11:03 88 18 121/77 11/17/24 11:00 121/77 11/17/24 10:51 92 H 23 11/17/24 10:17 75 11/17/24 10:15 74 20 11/17/24 09:51 67 26 H 11/17/24 09:45 64 28 H 11/17/24 09:30 70 29 H 11/17/24 09:30 115/75 11/17/24 09:30 115/75 11/17/24 09:30 115/75 11/17/24 09:24 76 22 11/17/24 09:19 114/76 11/17/24 09:10 11/17/24 09:04 36.8 C 83 17 114/78 11/17/24 09:03 69 18 114/75 Pulse Ox O2 Del Method O2 Flow Rate 11/17/24 15:10 94 Oxymask 3 11/17/24 15:00 96 Oxymask 6 11/17/24 14:54 97 Oxymask 6 11/17/24 13:30 95 11/17/24 13:30 11/17/24 13:30 11/17/24 13:18 94 11/17/24 13:06 94 11/17/24 13:00 94 11/17/24 12:36 96 11/17/24 12:30 11/17/24 12:18 94 11/17/24 12:12 96 11/17/24 12:03 95 11/17/24 12:00 11/17/24 12:00 11/17/24 11:30 94 11/17/24 11:30 11/17/24 11:21 11/17/24 11:12 94 11/17/24 11:03 96 11/17/24 11:00 11/17/24 10:51 94 11/17/24 10:17 11/17/24 10:15 93 11/17/24 09:51 98 11/17/24 09:45 100 11/17/24 09:30 99 11/17/24 09:30 11/17/24 09:30 11/17/24 09:30 11/17/24 09:24 91 11/17/24 09:19 11/17/24 09:10 99 11/17/24 09:04 100 Room Air 11/17/24 09:03 99 Room Air Transfer of Care Handoff Completed per policy Notes Mental Status: alert / awake / arousable Patient Amnestic to Procedure: Yes Nausea / Vomiting: adequately controlled Pain: adequately controlled Airway Patency, RR, SpO2: stable & adequate BP & HR: stable & adequate Hydration State: stable & adequate Anesthetic Complications: no major complications apparent
[2024-11-17] MEDS ORDERED: MoRPHine SULFATE 2 MG/ML CARP IV PRN (16:11)
[2024-11-17] MEDS ORDERED: traMADol HCL 50 MG TABLET PO PRN (16:11)
[2024-11-17] MEDS: NSS + 20MEQ KCL 20 MEQ/1,000 ML BAG IV SCH (16:52)
[2024-11-17] MEDS: DULoxetine HCL 30 MG CAP PO SCH (21:10)
[2024-11-17] MEDS: OXcarbazepine 60MG/ML SUSP PO SCH (21:11)
[2024-11-17] MEDS: busPIRone 5 MG TAB PO SCH (21:11)
[2024-11-17] MEDS: ACETAMINOPHEN 1,000 MG/100 ML VIAL IV PRN (23:22)
[2024-11-18 03:01] VITALS: TEMP 98.1
[2024-11-18 08:25] LABS: Basophils # (auto) 0.02 K/uL (0.00-0.20); Basophils % (auto) 0.2 %; Eosinophils # (auto) 0.32 K/uL (0.00-0.50); Eosinophils % (auto) 3.5 %; Hematocrit (blood only) 42.9 % (42.0-52.0); Hemoglobin 14.5 g/dl (14.0-18.0); Immature Granulocytes # (auto) 0.02 K/uL (0.01-0.20); Immature Granulocytes % (auto) 0.2 %; Lymphocytes # (auto) 1.68 K/uL (1.20-3.40); Lymphocytes % (auto) 18.2 %; Mean Corpuscular Hemoglobin 30.4 pg (25.0-34.0); Mean Corpuscular Hgb Conc 33.8 g/dL (32.0-36.0); Mean Corpuscular Volume 89.9 fL (80.0-100.0); Mean Platelet Volume 9.3 fL (9.4-12.4); Monocytes # (auto) 1.12 K/uL (0.11-0.59); Monocytes % (auto) 12.1 %; Neutrophils # (auto) 6.06 K/uL (1.40-6.50); Neutrophils % (auto) 65.8 %; Platelet Count 241 K/uL (130-400); RDW Coefficient of Variation 13.6 % (11.5-14.5); RDW Standard Deviation 44.7 fL (36.4-46.3); Red Blood Count 4.77 M/uL (4.70-6.10); White Blood Count 9.22 K/ul (4.8-10.8)
[2024-11-18 08:39] LABS: BUN Creatinine Ratio 16.2 (10-20); Calcium 8.3 mg/dl (8.6-10.3); Creatinine Clr Calc Pharmacy 95.8 ml/min; Magnesium 1.8 mg/dl (1.7-2.4); Potassium 3.9 mmol/L (3.5-5.1)
[2024-11-18] MEDS: amLODIPine BESYLATE 5 MG TAB PO SCH (09:36)
--- NOTE | 2024-11-18 11:09 | Hospitalist Progress Note ---
Date of Service November 18, 2024 Assessment & Plan (1) Acute left flank pain: Plan: Due to left ureteral calculus. Now resolved (2) Calculus of left ureter: Plan: Present on admission. He subsequently underwent cystoscopy with left stent placement, laser lithotripsy and stone extraction (3) Acute UTI (urinary tract infection): Plan: He remains on intravenous Rocephin, day 2. Urine culture results are pending. Unfortunately he had a low-grade fever last night (4) Renal insufficiency: Plan: Mild GUIDO on admission with creatinine 1.2. Now normalized with IV fluids. (5) Abdominal pain: Plan: Left-sided due to ureteral colic. Now resolved (6) Depression: Plan: Stable. Continue current medical management Plan Hopeful discharge back to [facility] tomorrow, November 19 Admission and Anticipated Discharge Date Admission Date: November 17, 2024 Subjective Alert and oriented. Asymptomatic now. Unfortunately he had a low-grade fever last night and remains on parenteral antibiotics. Urine culture final results remain pending. Hopefully he can return to [facility] tomorrow, November 19 Review of Systems 2 Review of Systems: Constitutionalno fever or chills ENTno blurred vision, no double vision, no epistaxis, no sore throat Respiratoryno cough, no wheezing, no shortness of breath Cardiacno palpitations, no chest pain, no syncope Nury nausea, vomiting, diarrhea, melena, hematochezia GUno urinary retention, no urinary incontinence, no dysuria, no hematuria Musculoskeletalno joint pain, no muscle tenderness Skinno bruising, no rashes, no pruritus Neurono isolated weakness, no paresthesia, no weakness Psychno depression, no anxiety Physical Exam 2 Physical Exam: General-alert and oriented x3, no fever, no chills HEENT-head atraumatic and normocephalic, pupils equal and reactive to light, extraocular muscles intact Neck-no lymphadenopathy or thyromegaly, trachea midline Chest-clear to auscultation. No rales, wheezing or rhonchi Cardiac-regular rate and rhythm, normal S1 and S2 Abdomen-normal bowel sounds, no hepatosplenomegaly Extremities-no cyanosis, clubbing, or edema Neuro-cranial nerves II through XII intact, motor and sensory function within normal limits, strength symmetrical, no focal deficits Psych-normal affect, normal mood Results & Data Results & Data Vital Signs (Past 12 Hours) Vital Signs Temp Pulse Resp BP Pulse Ox O2 Del Method 11/18/24 03:01 36.7 C 79 18 123/83 96 Room Air Laboratory Results 11/18/24 07:55 11/18/24 07:55 PG Care Time/CCT Total # of Minutes Spent Total Time Spent with Patient: Total time spent is greater than 50% in coordination of care (as documented) at patient's floor/unit and/or counseling patient: Coding Level of Care Code 66169 SUB INP/OBS CARE 3/50MIN Diagnoses Acute left flank pain R10.9 Calculus of left ureter N20.1 Acute UTI (urinary tract infection) N39.0 Renal insufficiency N28.9 Abdominal pain R10.9 Depression F32.A
[2024-11-18] MEDS: cefTRIAXone SODIUM 2,000 MG/50 ML BAG IV SCH (11:49)
--- NOTE | 2024-11-18 12:32 | Urology Progress Note ---
Date of Service November 18, 2024 Assessment & Plan (1) Calculus of left ureter: (2) Acute UTI (urinary tract infection): (3) Abdominal pain: Plan Patient postop day 1 status post left ureteroscopy stone treatment and stent placement. Severely impacted/obstructing stone within the UPJ region. The stone was destroyed into small fragments and pieces. Major or larger pieces were able to be grasped and removed. There was some mild debris within the kidney. Patient did have mild fever overnight. Has been having continued episodes of flank pain and discomfort. Has increased especially with voiding. Did discuss this may be due to reflux with the stent in position. Patient had significant and severe obstruction and difficulty passing wires due to the degree of obstruction. Patient has otherwise tolerated the stent. Has some spasms urgency and frequency. These are being tolerated. Patient is continuing on broad-spectrum antibiotics. Have been coordinating with the hospitalist team. With temperature 38.0 overnight we need to continue IV antibiotics for continued coverage. Can likely transition to oral antibiotics if patient continues to stabilize. White count is down to 9.22. Creatinine is 0.99. Vitals have remained stable otherwise with Tmax of 38 last evening. Did review plans for stent removal in approximately 1 to 2 weeks in office. Can have patient return for follow-up at that time with plans for removal of stent at that time. Will likely need proximately 7 to 10 days of antibiotic coverage secondary to development of fever yesterday. Admission and Anticipated Discharge Date Admission Date: November 17, 2024 Subjective Postop from stent placement for obstruction issues. Patient has been tolerating well. Has noticed some frequency and urgency. Has not had severe pain in the back and flank. Does have occasional burning and irritation. No severe episodes or major changes. No new nausea or vomiting. Had tolerated anesthesia without major problems Review of Systems Review of Systems: All systems reviewed & are unremarkable except as noted in HPI & below Physical Exam Physical Exam: General: Alert in no acute distress. HEENT: Normocephalic Atraumatic. Inspection normal. Cranial Nerves 2-12 Grossly intact. Normal inspection of face. Normal inspection of neck. Psychologic: Normal affect. Respiratory: Nonlabored. No use of accessory muscles. No tachypnea or dyspnea. Cardiovascular: No tachycardia Skin: Morton and Dry. No rashes or visible lesions. Extremities/Lymphatics: No edema Abdomen: Soft Non-distended. No rebound or guarding. Results & Data Vital Signs (Past 12 Hours) Vital Signs Temp Pulse Resp BP Pulse Ox O2 Del Method 11/18/24 03:01 36.7 C 79 18 123/83 96 Room Air PG Care Time/CCT Total # of Minutes Spent Total Time Spent with Patient: Total time spent is greater than 50% in coordination of care (as documented) at patient's floor/unit and/or counseling patient: Coding Level of Care Code 42161 SUB INP/OBS CARE 3/50MIN Diagnoses Calculus of left ureter N20.1 Acute UTI (urinary tract infection) N39.0 Abdominal pain R10.9
[2024-11-18] MEDS: KETOROLAC TROMETHAMINE 15 MG/ML VIAL IV PRN (13:50)
[2024-11-18 19:25] LABS: Adenovirus F 40/41 PCR Not Detected (NotDetected); Astrovirus PCR Not Detected (NotDetected); Campylobacter PCR Not Detected (NotDetected); Cryptosporidium PCR Not Detected (NotDetected); Cyclospora cayetanensis PCR Not Detected (NotDetected); Entamoeba histolytica PCR Not Detected (NotDetected); Enteroaggregative E.coli(EAEC) Not Detected (NotDetected); Enteropathogenic E.coli (EPEC) Not Detected (NotDetected); Enterotoxigenic E.coli (ETEC) Not Detected (NotDetected); Giardia lamblia PCR Not Detected (NotDetected); Plesiomonas shigelloides PCR Not Detected (NotDetected); Rotavirus A PCR Not Detected (NotDetected); Salmonella PCR Not Detected (NotDetected); Sapovirus PCR Not Detected (NotDetected); Shiga-like Toxin E.coli (STEC) Not Detected (NotDetected); Shigella/Enteroinvasive E.coli Not Detected (NotDetected); Vibrio cholerae PCR Not Detected (NotDetected); Vibrio species PCR Not Detected (NotDetected); Yersinia enterocolitica PCR Not Detected (NotDetected)
[2024-11-18 20:01] LABS: Norovirus GI/GII PCR DETECTED (NotDetected)
[2024-11-18 20:22] VITALS: BP 123/75; RESP 19; O2SAT 97
[2024-11-19 06:22] LABS: BUN Creatinine Ratio 15.3 (10-20); Calcium 8.5 mg/dl (8.6-10.3); Creatinine Clr Calc Pharmacy 96.8 ml/min; Potassium 3.6 mmol/L (3.5-5.1)
[2024-11-19 06:26] LABS: Basophils # (auto) 0.03 K/uL (0.00-0.20); Basophils % (auto) 0.3 %; Eosinophils # (auto) 0.36 K/uL (0.00-0.50); Eosinophils % (auto) 3.8 %; Hematocrit (blood only) 43.2 % (42.0-52.0); Hemoglobin 14.4 g/dl (14.0-18.0); Immature Granulocytes # (auto) 0.03 K/uL (0.01-0.20); Immature Granulocytes % (auto) 0.3 %; Lymphocytes % (auto) 22.4 %; Mean Corpuscular Hemoglobin 29.8 pg (25.0-34.0); Mean Corpuscular Hgb Conc 33.3 g/dL (32.0-36.0); Mean Corpuscular Volume 89.4 fL (80.0-100.0); Mean Platelet Volume 9.2 fL (9.4-12.4); Monocytes # (auto) 1.19 K/uL (0.11-0.59); Monocytes % (auto) 12.7 %; Neutrophils # (auto) 5.68 K/uL (1.40-6.50); Neutrophils % (auto) 60.5 %; Platelet Count 251 K/uL (130-400); RDW Coefficient of Variation 13.3 % (11.5-14.5); Red Blood Count 4.83 M/uL (4.70-6.10); White Blood Count 9.39 K/ul (4.8-10.8)
--- NOTE | 2024-11-19 09:12 | Discharge Summary ---
Discharge Summary Date of Service November 19, 2024 Principal Dx & Hospital Course #1 = Principal Diagnosis (1) Acute left flank pain: Due to left ureteral calculus. Now resolved (2) Calculus of left ureter: Present on admission. He subsequently underwent cystoscopy with left stent placement, laser lithotripsy and stone extraction (3) Acute UTI (urinary tract infection): Treated while hospitalized with intravenous Rocephin. Urine culture however is negative. He will remain on oral ciprofloxacin for 1 week at discharge (4) Renal insufficiency: Mild GUIDO on admission with creatinine 1.2. Now normalized with IV fluids. (5) Abdominal pain: Left-sided due to ureteral colic. Now resolved (6) Depression: Stable. Continue current medical management Plan Discharge back to [facility] today, November 19. He will remain on oral Cipro for 1 week. Urology will remove the stent in the office as an outpatient in 1 to 2 weeks Admission HPI Per Admitting Provider 54yo male presents for LEFT flank pain with radiation to anterior abdomen with history of kidney stones (last urological procedure ~ 3 years a go at [facility]). Reports pain 10/10 with some hematuria reported along with nausea/vomiting and diarrhea. Patient evaluated in B11B, 2 guards at bedside. Mild distress and to get medication for pain. Reports needing urological procedure in past for stone treatment and discussed plan for OR this evening with urology as well as abx for possible UTI. Notable did have diarrhea as well, no RUQ pain but discussed w/ guards if anyone else sick and does have reports possible norovirus. Will send for testing, IVF hydration ordered and will place empiric isolation precatuions. Reviewed home meds: cymbalta 90mg HS, trileptal 750mg HS buspar 20mg HS, amlodipine 5mg daily (did not take today). Tramadol 50mg - 2 tablets once daily. No CP/SOB reported. Questions/concerns addressed at this time. Discharge Exam General-alert and oriented x3, no fever, no chills HEENT-head atraumatic and normocephalic, pupils equal and reactive to light, extraocular muscles intact Neck-no lymphadenopathy or thyromegaly, trachea midline Chest-clear to auscultation. No rales, wheezing or rhonchi Cardiac-regular rate and rhythm, normal S1 and S2 Abdomen-normal bowel sounds, no hepatosplenomegaly Extremities-no cyanosis, clubbing, or edema Neuro-cranial nerves II through XII intact, motor and sensory function within normal limits, strength symmetrical, no focal deficits Psych-normal affect, normal mood Discharge Plan Discharge Items [facility] Reason For Visit: KIDNEY STONE W/ OBSTRUCTION Discharge Diagnosis: Left ureteral calculus and ureteral colic, mild left hydronephrosis Activity: Resume your previous activity Non-emergency contact: Primary Care Provider Call non-emergency contact if: your symptoms worsen Follow-up/Referrals: Luigi STEIN [Primary Care Provider] - Diet: Regular Addtl Attending Provider Instructions: Take ciprofloxacin antibiotic 500 mg twice daily for 1 week. Urology will remove the ureter stent in the office in 1 to 2 weeks. Pending Studies at Discharge: No Stand-Alone Forms: [facility] Skilled Items Patient informed of condition?: Yes Discharge Level of Care: Other Communicable Disease: No Discharge Prognosis: Stable Lines: None Urinary Catheter: No Medications and DC Order Prescriptions: New ciprofloxacin HCl [Cipro] 500 mg tablet 500 mg PO BID Qty: 14 0RF Continued oxcarbazepine [Trileptal] 150 mg Tablet 150 mg PO HS Rx Instructions: Take w/ 600mg to equal 750mg oxcarbazepine [Trileptal] 300 mg Tablet 600 mg PO HS Rx Instructions: Take w/ 1500mg to equal 750mg amlodipine 5 mg Tablet 5 mg PO DAILY tramadol 50 mg Tablet 100 mg PO DAILY buspirone 10 mg Tablet 20 mg PO HS duloxetine 30 mg Capsule,Delayed Release(Dr/Ec) 30 mg PO HS Rx Instructions: Take w/ 60mg to equal 90 mg duloxetine 60 mg Capsule,Delayed Release(Dr/Ec) 60 mg PO HS Rx Instructions: Take w/ 30mg to equal 90 mg Discharge Orders: Discharge Order (Routine); Ordered 11/19/24 Ordered By: Salty Arrieta Admission Data Admit Date/Time: 11/17/24 13:40 Attending Provider: Salty Arrieta Admit Provider: Elliot Arreola Primary Care Provider: Luigi STEIN Other Providers: Elliot Arreola; Balwinder [facility] Hospital Stay Data Consultations 11/17/24 12:52 ED Decision to Admit Stat 11/17/24 16:11 Consult Urology Routine Procedures Performed Operation Date: 11/17/24 10:30 Actual Procedures p Cystoscopy, Left Ureteroscopy, Left Retrograde Pyelogram, Laser Destruction and Stone Extraction, Left Ureteral Stent Placement(Left) - Jamal Farah, Diagnostic Imagining Performed 11/17/24 09:11 CT abd pelvis IV con only Stat 11/17/24 13:30 FL retrograde includes kub Routine Pending Results Patient Have Any Pending Studies at Discharge: No Discharge Instructions Given to Patient (Per Discharging Provider) Take ciprofloxacin antibiotic 500 mg twice daily for 1 week. Urology will remove the ureter stent in the office in 1 to 2 weeks. Total Time Total Time Spent Total Time Spent (In Minutes): 45 minutes Coding Level of Care Code 03138 INP/OBS DISCH >30 MIN Diagnoses Acute left flank pain R10.9 Calculus of left ureter N20.1 Acute UTI (urinary tract infection) N39.0 Renal insufficiency N28.9 Abdominal pain R10.9 Depression F32.A
[2024-11-19 10:20] VITALS: PULSE 77
== END 2024-11-19 11:54 | DRG 660 ==
LOC: ED 09:02 → OR 13:39 → 3E 13:40 → SUATTDRO 13:40
DX: N28.9 Disorder of kidney and ureter, unspecified; D64.9 Anemia, unspecified; Z91.09 Other allergy status, other than to drugs and biological substances; I10 Essential (primary) hypertension; Z79.899 Other long term (current) drug therapy; Z87.442 Personal history of urinary calculi; N23 Unspecified renal colic; N20.1 Calculus of ureter; F39 Unspecified mood [affective] disorder; N12 Tubulo-interstitial nephritis, not specified as acute or chronic